=== PATIENT | female | born 1985 | race Caucasian/White ===

== ENCOUNTER 2020-01-06 16:44 | Emergency (ER) | payer OTHER, MEDICAID ==
[~2020-01-06] VITALS: Ht 165.1 cm; Wt 88.5 kg
[2020-01-06] MEDS ORDERED: ENBRACE HR SOF1 EACH PO (17:11)
[2020-01-06 17:33] LABS: URINE BILIRUBIN NEGATIVE (Negative); URINE BLOOD 2+ (Negative); URINE CLARITY CLEAR; URINE COLOR YELLOW; URINE GLUCOSE-RANDOM NEGATIVE (Negative); URINE KETONES NEGATIVE (Negative); URINE LEUKOCYTES-REFLEX NEGATIVE (Negative); URINE NITRITE-REFLEX NEGATIVE (Negative); URINE PROTEIN NEGATIVE (Negative); URINE SPECIFIC GRAVITY >= 1.030 (1.005-1.030); URINE UROBILINOGEN 0.2 E.U./dl (0.2-1.0)
[2020-01-06 17:49] LABS: ABSOLUTE EOSINOPHILS 0.5 thou/uL (0.0-0.7); ABSOLUTE LYMPHOCYTES 2.5 thou/uL (0.8-5.3); ABSOLUTE MONOCYTES 0.5 thou/uL (0.0-1.2); ABSOLUTE NEUTROPHILS 3.2 thou/uL (1.6-8.1); BASOPHILS 0.6 %; EOSINOPHILS 7.4 %; HEMATOCRIT 39.2 % (37.0-47.0); HEMOGLOBIN 13.7 gm/dL (12.0-15.0); LYMPHOCYTES 37.3 %; MCH 30.8 pg (26.0-34.0); MCHC 34.8 g/dL (28.0-37.0); MCV 88.6 fL (80.0-100.0); MONOCYTES 7.2 %; MPV 7.9 fl. (7.2-11.1); NUCLEATED RBCS 0 /100WBC; PLATELET COUNT* 237 thou/uL (150-400); POLYS 47.5 %; RBC 4.43 mil/uL (4.20-5.00); RDW-CV 12.7 % (10.5-14.5); WBC 6.7 thou/uL (4.0-11.0)
[2020-01-06 17:55] LABS: CALCIUM 8.3 mg/dL (8.5-10.1); POTASSIUM 3.8 mmol/L (3.5-5.1)
[2020-01-06 18:00] LABS: CASTS None Seen /LPF (None Seen); CRYSTALS None Seen /LPF (None Seen); MUCUS None Seen strn/LPF (None Seen); SQUAMOUS >10 Many /LPF (0-3); URINE RBC 3-10 Few /HPF (0-2)
[2020-01-06 18:00] LABS: ALBUMIN 3.5 g/dL (3.4-5.0); TOTAL BILIRUBIN 0.6 mg/dL (<0.1-1.0); TOTAL PROTEIN 7.2 g/dL (6.4-8.2)
[2020-01-06 18:01] LABS: URINE WBC-REFLEX 0-5 Rare /HPF (0-5)
[2020-01-06] MEDS ORDERED: NORCO 5-325 TA1 EAC2 PO (20:41)
[2020-01-06 20:49] VITALS: BP 128/72
== END 2020-01-06 20:49 | disposition home or self-care (01) ==
LOC: M.ERS 16:44
PROVIDERS: Physician Assistant
DX: R10.31 Right lower quadrant pain (principal); N80.9 Endometriosis, unspecified; Z98.890 Other specified postprocedural states; Z90.49 Acquired absence of other specified parts of digestive tract

== ENCOUNTER 2020-06-20 11:52 | Emergency (ER) | payer OTHER, MEDICAID ==
[~2020-06-20] VITALS: Ht 165.1 cm; Wt 90.7 kg
[~2020-06-20 11:52] MED LIST: ENBRACE HR SOF1 EACH PO; NORCO 5-325 TA1 EAC2 PO
[2020-06-20 13:02] VITALS: BP 124/70
== END 2020-06-20 13:04 | disposition home or self-care (01) ==
LOC: M.ERS 11:52
DX: S89.82XA Other specified injuries of left lower leg, initial encounter (principal); Z90.49 Acquired absence of other specified parts of digestive tract; Z79.899 Other long term (current) drug therapy; X50.1XXA Overexertion from prolonged static or awkward postures, initial encounter; Y93.89 Activity, other specified; Y92.89 Other specified places as the place of occurrence of the external cause; Y99.8 Other external cause status

== ENCOUNTER 2021-01-30 16:04 | Emergency (ER) | payer OTHER, MEDICAID ==
[~2021-01-30] VITALS: Ht 165.1 cm; Wt 81.7 kg
[2021-01-30 18:48] LABS: WBC 8.1 thou/uL (4.0-11.0)
[2021-01-30 18:49] LABS: ABSOLUTE BASOPHILS 0.1 thou/uL (0.0-0.2); ABSOLUTE EOSINOPHILS 0.2 thou/uL (0.0-0.7); ABSOLUTE LYMPHOCYTES 2.7 thou/uL (0.8-5.3); ABSOLUTE MONOCYTES 0.5 thou/uL (0.0-1.2); ABSOLUTE NEUTROPHILS 4.8 thou/uL (1.6-8.1); BASOPHILS 0.7 %; EOSINOPHILS 1.9 %; HEMATOCRIT 43.1 % (37.0-47.0); HEMOGLOBIN 14.1 gm/dL (12.0-15.0); LYMPHOCYTES 32.6 %; MCH 29.6 pg (26.0-34.0); MCHC 32.8 g/dL (28.0-37.0); MCV 90.2 fL (80.0-100.0); MONOCYTES 6.3 %; MPV 7.9 fl. (7.2-11.1); NUCLEATED RBCS 0 /100WBC; PLATELET COUNT* 260 thou/uL (150-400); POLYS 58.5 %; RBC 4.78 mil/uL (4.20-5.00); RDW-CV 12.9 % (10.5-14.5)
[2021-01-30 18:57] LABS: CREATININE 0.9 mg/dL (0.6-1.3)
[2021-01-30 19:07] LABS: ALBUMIN 4.1 g/dL (3.4-5.0); TOTAL BILIRUBIN 0.7 mg/dL (<0.1-1.0)
[2021-01-30 19:14] LABS: URINE BILIRUBIN NEGATIVE (Negative); URINE BLOOD TRACE (Negative); URINE CLARITY CLEAR; URINE COLOR YELLOW; URINE GLUCOSE-RANDOM NEGATIVE (Negative); URINE KETONES NEGATIVE (Negative); URINE LEUKOCYTES-REFLEX NEGATIVE (Negative); URINE NITRITE-REFLEX NEGATIVE (Negative); URINE PROTEIN NEGATIVE (Negative); URINE SPECIFIC GRAVITY >= 1.030 (1.005-1.030); URINE UROBILINOGEN 0.2 E.U./dl (0.2-1.0)
[2021-01-30] MEDS ORDERED: MEDROLDOSEPACK PO (19:36)
[2021-01-30] MEDS ORDERED: NORFLEX100 MG PO (19:37)
[2021-01-30 19:51] VITALS: BP 122/78
--- NOTE | 2021-01-31 15:47 | EKG ---
[place] [address] ELECTROCARDIOGRAM REPORT Name: HIEN OSUNA Room: [facility]#: [id number] Admission: 01/30/21 Attend Phys: Discharge: 01/30/21 Date of : 89 Date of Service: 01/30/21 1609 Report #: [id number] THIS REPORT FOR: //name// [facility] ED Test Date: 2021-01-30 Test Time: 16:09:16 Pat Name: HIEN OSUNA Department: Room: Gender: Java Developer: PURVI : 1985 Requested By: William Gannon Order Number: [id number] MD: Justice Henderson Measurements Intervals [place] Rate: 79 P: 48 AK: 129 QRS: 12 QRSD: 87 T: 25 QT: 370 QTc: 425 Interpretive Statements Sinus rhythm Baseline wander in lead(s) V1 No previous ECG available for comparison Electronically Signed On 01-31-2021 15:47:48 CDT by Justice Henderson [email or web address] <ELECTRONICALLY SIGNED> By: Justice Henderson MD, [facility] 01/31/21 1547 1609 1609 Justice Henderson MD, FAC /EPI
== END 2021-01-30 19:52 | disposition home or self-care (01) ==
LOC: M.ERS 16:04
PROVIDERS: Nurse Practitioner Psychiatric/Mental Health
DX: R07.89 Other chest pain (principal); Z90.49 Acquired absence of other specified parts of digestive tract; M25.512 Pain in left shoulder

== ENCOUNTER 2021-02-24 00:12 | Emergency (ER) | payer OTHER, MEDICAID ==
[~2021-02-24] VITALS: Ht 165.1 cm; Wt 86.2 kg
[~2021-02-24 00:12] MED LIST changes: +MEDROLDOSEPACK PO; +NORFLEX100 MG PO
[2021-02-24 01:03] LABS: CALCIUM 7.9 mg/dL (8.5-10.1); CREATININE 0.9 mg/dL (0.6-1.3); POTASSIUM 3.5 mmol/L (3.5-5.1)
[2021-02-24 01:06] LABS: URINE BILIRUBIN NEGATIVE (Negative); URINE BLOOD 1+ (Negative); URINE CLARITY CLEAR; URINE COLOR YELLOW; URINE GLUCOSE-RANDOM NEGATIVE (Negative); URINE KETONES NEGATIVE (Negative); URINE LEUKOCYTES-REFLEX NEGATIVE (Negative); URINE NITRITE-REFLEX NEGATIVE (Negative); URINE PROTEIN NEGATIVE (Negative); URINE UROBILINOGEN 0.2 E.U./dl (0.2-1.0)
[2021-02-24 01:06] LABS: ABSOLUTE EOSINOPHILS 0.2 thou/uL (0.0-0.7); ABSOLUTE MONOCYTES 0.7 thou/uL (0.0-1.2); ABSOLUTE NEUTROPHILS 4.4 thou/uL (1.6-8.1); BASOPHILS 0.6 %; EOSINOPHILS 2.9 %; HEMOGLOBIN 13.3 gm/dL (12.0-15.0); LYMPHOCYTES 35.9 %; MCH 30.5 pg (26.0-34.0); MCHC 34.1 g/dL (28.0-37.0); MCV 89.4 fL (80.0-100.0); MPV 7.5 fl. (7.2-11.1); NUCLEATED RBCS 0 /100WBC; PLATELET COUNT* 235 thou/uL (150-400); POLYS 52.6 %; RBC 4.36 mil/uL (4.20-5.00); RDW-CV 12.7 % (10.5-14.5); WBC 8.3 thou/uL (4.0-11.0)
[2021-02-24 01:07] LABS: ALBUMIN 3.5 g/dL (3.4-5.0); TOTAL BILIRUBIN 0.3 mg/dL (<0.1-1.0); TOTAL PROTEIN 7.1 g/dL (6.4-8.2)
[2021-02-24 01:16] LABS: BACTERIA-REFLEX 1-9 Few /HPF (None Seen); CASTS None Seen /LPF (None Seen); CRYSTALS None Seen /LPF (None Seen); MUCUS 0-3 Light strn/LPF (None Seen); SQUAMOUS 4-10 Moderate /LPF (0-3); URINE RBC 0-2 Rare /HPF (0-2); URINE WBC-REFLEX 0-5 Rare /HPF (0-5)
[2021-02-24] MEDS ORDERED: HYDROCODON-ACE1 EAC8 PO (02:47)
[2021-02-24] MEDS ORDERED: MEDROLDOSEPACK PO (02:47)
[2021-02-24 02:55] VITALS: BP 116/68
== END 2021-02-24 02:57 | disposition home or self-care (01) ==
LOC: M.ERS 00:12
PROVIDERS: Emergency Medicine
DX: M54.2 Cervicalgia (principal); Z20.822 Contact with and (suspected) exposure to COVID-19; Z98.890 Other specified postprocedural states; Z90.49 Acquired absence of other specified parts of digestive tract

== ENCOUNTER 2021-03-03 09:39 | Emergency (ER) | payer OTHER, MEDICAID ==
[~2021-03-03] VITALS: Ht 165.1 cm; Wt 86.2 kg
[~2021-03-03 09:39] MED LIST changes: +HYDROCODON-ACE1 EAC8 PO
[2021-03-03 10:14] LABS: URINE BILIRUBIN NEGATIVE (Negative); URINE BLOOD NEGATIVE (Negative); URINE CLARITY CLEAR; URINE COLOR YELLOW; URINE GLUCOSE-RANDOM NEGATIVE (Negative); URINE KETONES NEGATIVE (Negative); URINE LEUKOCYTES-REFLEX NEGATIVE (Negative); URINE NITRITE-REFLEX NEGATIVE (Negative); URINE PROTEIN NEGATIVE (Negative); URINE SPECIFIC GRAVITY 1.015 (1.005-1.030); URINE UROBILINOGEN 0.2 E.U./dl (0.2-1.0)
[2021-03-03 10:55] LABS: ABSOLUTE EOSINOPHILS 0.2 thou/uL (0.0-0.7); ABSOLUTE LYMPHOCYTES 2.4 thou/uL (0.8-5.3); ABSOLUTE MONOCYTES 0.5 thou/uL (0.0-1.2); ABSOLUTE NEUTROPHILS 3.9 thou/uL (1.6-8.1); BASOPHILS 0.5 %; EOSINOPHILS 2.3 %; HEMATOCRIT 40.2 % (37.0-47.0); HEMOGLOBIN 13.6 gm/dL (12.0-15.0); LYMPHOCYTES 34.6 %; MCH 30.1 pg (26.0-34.0); MCHC 33.9 g/dL (28.0-37.0); MCV 88.9 fL (80.0-100.0); MONOCYTES 7.6 %; MPV 7.3 fl. (7.2-11.1); NUCLEATED RBCS 0 /100WBC; PLATELET COUNT* 267 thou/uL (150-400); RBC 4.52 mil/uL (4.20-5.00); RDW-CV 12.8 % (10.5-14.5)
[2021-03-03 11:06] LABS: CALCIUM 8.7 mg/dL (8.5-10.1); CREATININE 0.9 mg/dL (0.6-1.3); POTASSIUM 3.9 mmol/L (3.5-5.1)
[2021-03-03 11:11] LABS: ALBUMIN 3.7 g/dL (3.4-5.0); TOTAL BILIRUBIN 0.5 mg/dL (<0.1-1.0); TOTAL PROTEIN 7.4 g/dL (6.4-8.2)
[2021-03-03 11:32] VITALS: BP 139/90
== END 2021-03-03 11:33 | disposition home or self-care (01) ==
LOC: M.ERS 09:39
PROVIDERS: Physician Assistant
DX: R53.1 Weakness (principal); Z90.49 Acquired absence of other specified parts of digestive tract